=== PATIENT | female | born 1950 | race Caucasian/White ===

== ENCOUNTER 2020-03-10 14:59 | Emergency (ER) | payer MEDICARE, OTHER ==
[2020-03-10 15:15] VITALS: O2SAT 94
[2020-03-10] MEDS ORDERED: Sodium Chloride 0.9% 1000 ML 1,000 ML IV STA (15:28)
[2020-03-10] MEDS ORDERED: MORPHINE SULFATE 2 MG INJ IV ONE (15:28)
[2020-03-10] MEDS ORDERED: Zofran 4 MG/2 ML VIAL IV ONE (15:28)
[2020-03-10] MEDS ORDERED: Sodium Chloride 0.9% 1000 ML 1,000 ML ONE (15:47)
[2020-03-10] MEDS ORDERED: MORPHINE SULFATE 2 MG INJ ONE (15:47)
[2020-03-10 16:01] LABS: Absolute Neutrophil Ct (ANC) 5.33 (1.4-6.9); BASOPHIL % 0.2 % (0.0-0.4); Basophil (Absolute #) 0.02 (0-0.4); Eosinophil % 1.9 % (0.00-5.0); Eosinophil (Absolute #) 0.18 (0-0.5); Hematocrit 42.5 % (35-47); Hemoglobin 14.5 gm/dl (12.0-16.0); Lymphocyte (Absolute #) 3.08 (1.0-4.6); Lymphocytes % 33.2 % (24.0-44.0); Mean Cell Volume 87.1 fl (78-100); Mean Corpuscular Hemoglobin 29.7 pg (26-32); Mean Corpuscular Hgb Concent. 34.1 g/dl (32-36); Mean Platelet Volume 9.6 fl (7.5-11.0); Monocyte (Absolute #) 0.67 (0.0-1.3); Monocytes % 7.2 % (0.0-12.0); Neutrophil % 57.5 % (36.0-66.0); Platelet Count 257 K/mm3 (150-450); Red Blood Count 4.88 M/mm3 (4.1-5.4); Red Cell Distribution Width 14.2 % (11.5-14.0); White Blood Count 9.3 K/mm3 (4.0-10.5)
[2020-03-10 16:08] LABS: ALBUMIN 4.4 g/dL (3.5-5.0); ALKALINE PHOSPHATASE 99 U/L (38-126); ANION GAP 14.6 MEQ/L (5-15); BLOOD UREA NITROGEN 16 mg/dL (7-17); CHLORIDE 101 mmol/L (98-107); Calcium 9.5 mg/dL (8.4-10.2); Carbon Dioxide 24 mmol/L (22-30); EST GLOMERULAR FILTRATION RATE > 60.0 ML/MIN; Glucose 284 mg/dL (74-106); LIPASE 113 U/L (23-300); Potassium 3.6 mmol/L (3.5-5.1); SGOT/AST 75 U/L (14-36); SGPT/ALT 64 U/L (0-35); SODIUM 136 mmol/L (137-145); Total Protein 8.4 g/dL (6.3-8.2)
[2020-03-10] MEDS ORDERED: Adacel Vial IM ONE ×2 (16:45→17:39)
--- NOTE | 2020-03-10 16:47 | ERPHSYRPT ---
- History of Present Illness Time Seen by Provider: 03/10/20 15:02 Source: patient, EMS Exam Limitations: no limitations Patient Subjective Stated Complaint: fall Triage Nursing Assessment: pt to ED after fall at wedding today. reports she fell down 10-12 wooden steps and lost consiousness. denies blood thinners. pt reports 6/10 pain in lower back and in back of head. lac noted to back of head. A&Ox4 on arrival. C collar placed by EMS captain fishing vessel. denies neck pain Physician History: 69 years old female presented in the ER via EMS with chief complaint of fall with a laceration to back of her head and brief loss of consciousness for a few seconds prior to arrival. Patient reports she was at her daughter's home, opened the wrong door and accidentally stepped on the stairs and lost balance leading to fall all the way down. She is complaining of moderate intensity sharp headache especially in the back of her head and low back pain. Denies any numbness tingling or weakness of extremities. Denies any blurry vision, di zziness or lightheadedness before the fall. Does feel lightheaded whenever she sits up. Denies any chest pain or palpitations. No fever or chills reported. Denies any sick contact. Occurred: just prior to arrival Reason for Fall: tripped Injuries/Pain Location: head, lower Loss of Consciousness: brief (seconds) Quality: sharpness Severity of Pain-Max: moderate Severity of Pain-Current: moderate Modifying Factors: Improves With: nothing Associated Symptoms (Fall): headache, lightheadedness Hx Tetanus, Diphtheria Vaccination/Date Given: No Hx Influenza Vaccination/Date Given: No Hx Pneumococcal Vaccination/Date Given: No Immunizations Up to Date: No Travel Risk - International Travel Have you traveled outside of the country in past 3 weeks: No - Coronavirus Screening Are you exhibiting any of the following symptoms?: No Close contact with a COVID-19 positive Pt in past 14-21 Days: No - Review of Systems Constitutional: Fatigue Eyes: No Symptoms Ears, Nose, & Throat: No Symptoms Respiratory: No Symptoms Cardiac: No Symptoms Abdominal/Gastrointestinal: No Symptoms Genitourinary Symptoms: No Symptoms Musculoskeletal: Back Pain Skin: No Symptoms Neurological: Dizziness, Headache Psychological: No Symptoms Endocrine: No Symptoms Hematologic/Lymphatic: No Symptoms Immunological/Allergic: No Symptoms - Past Medical History Pertinent Past Medical History: Yes Cardiac History: Other Endocrine Medical History: Other Other Medical History: pre diabetic, clear heart cath years ago - Past Surgical History Past Surgical History: Yes Cardiac: Cardiac Catheterization - Social History Smoking Status: Never smoker Exposure to second hand smoke: No Drug Use: none Patient Lives Alone: No - Female History Hx Now: No - Nursing Vital Signs Nursing Vital Signs: Initial Vital Signs Temperature 97.6 F 03/10/20 15:03 Pulse Rate 97 H 03/10/20 15:03 Respiratory Rate 18 03/10/20 15:03 Blood Pressure 140/95 03/10/20 15:03 O2 Sat by Pulse Oximetry 94 L 03/10/20 15:03 Pain Scale Pain Intensity 3 - Brunilda Coma Score Best Eye Response (Brunilda): (4) open spontaneously Best Verbal Response (Pemberton): (5) oriented Best Motor Response (Pemberton): (6) obeys commands Pemberton Total: 15 - Physical Exam General Appearance: no apparent distress, alert Head Injury: lacerations (7 cm occipital area with no active spurting but has slow ooze.), tenderness (Occipital area), No Michaud's Sign Eye Exam: PERRL/EOMI, eyes nml inspection ENT Exam: airway nml, evidence of ENT injury Neck Exam: supple, trachea midline, full range of motion, normal alignment Respiratory/Chest Exam: normal breath sounds, No chest tenderness Cardiovascular Exam: normal heart sounds, regular rate/rhythm Gastrointestinal Exam: soft, normal bowel sounds, tenderness (Minimal tenderness in left lower quadrant) Back Exam: normal inspection, vertebral tenderness (Lower lumbar), decreased range of motion, muscle spasm Extremity Exam: normal inspection, normal range of motion, capillary refill <3 sec Neurologic Exam: alert, oriented x 3, cooperative, data warehousing engineer II-XII nml as tested, normal mood/affect, nml cerebellar function, sensation nml, No motor deficits Skin Exam: normal color SpO2 Interpretation: normal SpO2: 94 O2 Delivery: Room Air Procedures - Laceration/Wound Repair Head Wound Location: head Wound Length (cm): 7 Wound's Depth, Shape: superficial Anesthesia: 1% lidocaine w/ Epi Volume Anesthetic (ccs): 5 Wound Repaired With: [place] Number of Sutures: 10 Occipital Wound Location: head Wound Length (cm): 7 Wound's Depth, Shape: into muscle Wound Explored: clean Irrigated: Yes Hibiclens Prep: Yes Anesthesia: 1% lidocaine w/ Epi Volume Anesthetic (ccs): 5 Wound Repaired With: [place] Number of Sutures: 10 Layer Closure?: No Sterile Dressing Applied?: Yes - Course EKG Interpreted by Me: RATE (97), Sinus Rhythm, NORMAL AXIS, NORMAL INTERVALS, NORMAL QRS Ordered Tests: Medication Summary Discontinued Medications Generic Name Dose Route Start Last Admin Trade Name Freq PRN Reason Stop Dose Admin Diphtheria/Tetanus/Acell Pertussis 0.5 ml 03/10/20 16:45 03/10/20 17:40 Adacel Vial IM 03/10/20 16:46 0.5 ml .ONCE ONE Administration Diphtheria/Tetanus/Acell Pertussis Confirm 03/10/20 17:39 Adacel Vial Administered 03/10/20 17:40 Dose 0.5 ml IM .STK-MED ONE Sodium Chloride 1,000 mls @ 499 mls/hr 03/10/20 15:28 03/10/20 18:23 Sodium Chloride 0.9% 1000 Ml IV 03/10/20 17:28 Infused .Q2H1M STA Infusion Sodium Chloride Confirm 03/10/20 15:47 Sodium Chloride 0.9% 1000 Ml Administered 03/10/20 15:48 Dose 1,000 mls @ ud .ROUTE .STK-MED ONE Morphine Sulfate 2 mg 03/10/20 15:28 03/10/20 15:55 Morphine Sulfate 2 Mg Inj IV 03/10/20 15:29 2 mg STAT ONE Administration Morphine Sulfate Confirm 03/10/20 15:47 Morphine Sulfate 2 Mg Inj Administered 03/10/20 15:48 Dose 2 mg .ROUTE .STK-MED ONE Ondansetron HCl 4 mg 03/10/20 15:28 03/10/20 17:40 Zofran 4 Mg/2 Ml Vial IV 03/10/20 15:29 4 mg STAT ONE Administration Ondansetron HCl Confirm 03/10/20 17:39 Zofran 4 Mg/2 Ml Vial Administered 03/10/20 17:40 Dose 4 mg .ROUTE .STK-MED ONE Lab/Rad Data: Laboratory Result Diagrams 03/10/20 15:30 03/10/20 15:30 Laboratory Results 03/10/20 03/10/20 03/10/20 Range/Units 18:25 18:23 15:30 WBC (4.0-10.5) K/mm3 RBC (4.1-5.4) M/mm3 Hgb (12.0-16.0) gm/dl Hct (35-47) % MCV (78-100) fl MCH (26-32) pg MCHC (32-36) g/dl RDW (11.5-14.0) % Plt Count (150-450) K/mm3 MPV (7.5-11.0) fl Gran % (36.0-66.0) % Eos # (Auto) (0-0.5) Absolute Lymphs (auto) (1.0-4.6) Absolute Monos (auto) (0.0-1.3) Lymphocytes % (24.0-44.0) % Monocytes % (0.0-12.0) % Eosinophils % (0.00-5.0) % Basophils % (0.0-0.4) % Absolute Granulocytes (1.4-6.9) Basophils # (0-0.4) Sodium (137-145) mmol/L Potassium (3.5-5.1) mmol/L Chloride (98-107) mmol/L Carbon Dioxide (22-30) mmol/L Anion Gap (5-15) MEQ/L BUN (7-17) mg/dL Creatinine (0.52-1.04) mg/dL Estimated GFR ML/MIN Glucose (74-106) mg/dL Calcium (8.4-10.2) mg/dL Total Bilirubin (0.2-1.3) mg/dL AST (14-36) U/L ALT (0-35) U/L Alkaline Phosphatase (38-126) U/L Troponin I < 0.012 < 0.012 (0.000-0.034) ng/mL Serum Total Protein (6.3-8.2) g/dL Albumin (3.5-5.0) g/dL Lipase (23-300) U/L Urine Color YELLOW (YELLOW) Urine Appearance SLIGHTLY CLOUDY (CLEAR) Urine pH 5.0 (5-6) Ur Specific [place]ell 1.037 (1.005-1.025) Urine Protein NEGATIVE (Negative) Urine Ketones SMALL (NEGATIVE) Urine Blood SMALL (0-5) Marvel/ul Urine Nitrite NEGATIVE (NEGATIVE) Urine Bilirubin NEGATIVE (NEGATIVE) Urine Urobilinogen NEGATIVE (0-1) mg/dL Ur Leukocyte Esterase LARGE (NEGATIVE) Urine WBC (Auto) 26-50 (0-5) /HPF Urine RBC (Auto) 3-5 (0-2) /HPF U Epithel Cells (Auto) RARE (FEW) /HPF Urine Bacteria (Auto) RARE (NEGATIVE) /HPF Urine Mucus (Auto) SLIGHT (NEGATIVE) /HPF Urine Culture Reflexed YES (NO) Urine Glucose >=500 (NEGATIVE) mg/dL 03/10/20 03/10/20 Range/Units 15:30 15:30 WBC 9.3 (4.0-10.5) K/mm3 RBC 4.88 (4.1-5.4) M/mm3 Hgb 14.5 (12.0-16.0) gm/dl Hct 42.5 (35-47) % MCV 87.1 (78-100) fl MCH 29.7 (26-32) pg MCHC 34.1 (32-36) g/dl RDW 14.2 H (11.5-14.0) % Plt Count 257 (150-450) K/mm3 MPV 9.6 (7.5-11.0) fl Gran % 57.5 (36.0-66.0) % Eos # (Auto) 0.18 (0-0.5) Absolute Lymphs (auto) 3.08 (1.0-4.6) Absolute Monos (auto) 0.67 (0.0-1.3) Lymphocytes % 33.2 (24.0-44.0) % Monocytes % 7.2 (0.0-12.0) % Eosinophils % 1.9 (0.00-5.0) % Basophils % 0.2 (0.0-0.4) % Absolute Granulocytes 5.33 (1.4-6.9) Basophils # 0.02 (0-0.4) Sodium 136 L (137-145) mmol/L Potassium 3.6 (3.5-5.1) mmol/L Chloride 101 (98-107) mmol/L Carbon Dioxide 24 (22-30) mmol/L Anion Gap 14.6 (5-15) MEQ/L BUN 16 (7-17) mg/dL Creatinine 0.50 L (0.52-1.04) mg/dL Estimated GFR > 60.0 ML/MIN Glucose 284 H (74-106) mg/dL Calcium 9.5 (8.4-10.2) mg/dL Total Bilirubin 0.70 (0.2-1.3) mg/dL AST 75 H (14-36) U/L ALT 64 H (0-35) U/L Alkaline Phosphatase 99 (38-126) U/L Troponin I (0.000-0.034) ng/mL Serum Total Protein 8.4 H (6.3-8.2) g/dL Albumin 4.4 (3.5-5.0) g/dL Lipase 113 (23-300) U/L Urine Color (YELLOW) Urine Appearance (CLEAR) Urine pH (5-6) Ur Specific [place] (1.005-1.025) Urine Protein (Negative) Urine Ketones (NEGATIVE) Urine Blood (0-5) Marvel/ul Urine Nitrite (NEGATIVE) Urine Bilirubin (NEGATIVE) Urine Urobilinogen (0-1) mg/dL Ur Leukocyte Esterase (NEGATIVE) Urine WBC (Auto) (0-5) /HPF Urine RBC (Auto) (0-2) /HPF U Epithel Cells (Auto) (FEW) /HPF Urine Bacteria (Auto) (NEGATIVE) /HPF Urine Mucus (Auto) (NEGATIVE) /HPF Urine Culture Reflexed (NO) Urine Glucose (NEGATIVE) mg/dL - Progress Progress: improved, re-examined Progress Note: 69 years old is evaluated for fall with a laceration in the occipital area with positive loss of consciousness. I have obtained trauma scans with no acute fin dings in the head cervical/thoracic spine. Has some spinal stenosis and lumbar spine which according to patient she has chronic low back pain and some stenosis but no acute fracture or subluxation. Laceration is repaired. She is given symptomatic treatment in the ER, on reevaluation feeling better. Tetanus is updated. Patient lives with her and has good support system. She is being discharged with frequent neuro checks and outpatient follow-up. Discussed signs symptoms of worsening/head injury instructions needing return to ER which she seems understanding. Stable for discharge. Counseled pt/family regarding: lab results, diagnosis, need for follow-up, rad results - Departure Departure Disposition: Home Clinical Impression: Concussion Qualifiers: Encounter type: initial encounter Loss of consciousness presence/duration: with LOC of 30 min or less Qualified Code(s): S06.0X1A - Concussion with loss of cons ciousness of 30 minutes or less, initial encounter Scalp laceration Qualifiers: Encounter type: initial encounter Qualified Code(s): S01.01XA - Laceration without foreign body of scalp, initial encounter Low back strain Qualifiers: Encounter type: initial encounter Qualified Code(s): S39.012A - Strain of muscle, fascia and tendon of lower back, initial encounter Condition: Stable Critical Care Time: No Referrals: MANA MEANS MD [Primary Care Provider] - Follow Up with PCP/3 days Instructions: Concussion, Adult (DC), Low Back Pain (DC) Additional Instructions: Take pain medications as needed. Frequent neuro checks for next 48 hours, stay with a responsible person. Staple removal and 7 to 10 days. Return to ER for worsening.
[2020-03-10] MEDS ORDERED: Zofran 4 MG/2 ML VIAL ONE (17:39)
[2020-03-10 18:31] LABS: Appearance SLIGHTLY CLOUDY (CLEAR); Bacteria RARE /HPF (NEGATIVE); Bilirubin NEGATIVE (NEGATIVE); Blood SMALL Ery/ul (0-5); Epithelial Cells RARE /HPF (FEW); Glucose >=500 mg/dL (NEGATIVE); Ketones SMALL (NEGATIVE); Leukocyte Esterase LARGE (NEGATIVE); Mucus SLIGHT /HPF (NEGATIVE); Nitrite NEGATIVE (NEGATIVE); Protein,Urine Dip NEGATIVE (Negative); Specific Gravity 1.037 (1.005-1.025); Urobilinogen NEGATIVE mg/dL (0-1); WBC 26-50 /HPF (0-5)
[2020-03-10 19:14] VITALS: BP 147/77; PULSE 67
--- NOTE | 2020-03-10 20:40 | XRAY ---
Indication: Head injury following fall down stairs. Multiple contiguous axial images obtained through the head without contrast. Comparison: None No acute intracranial hemorrhage, abnormal extra-axial fluid collection, or mass effect. Fourth ventricle is midline without hydrocephalus. Storey-white matter differentiation preserved. Small posterior scalp hematoma. Bony calvarium intact with mild hyperostosis frontalis interna. Paranasal sinuses and mastoid air cells are clear. Impression: Small posterior scalp hematoma. No underlying fracture or acute intracranial abnormalities. Comment: Preliminary interpretation was made by [facility]. No critical discrepancy.
--- NOTE | 2020-03-10 20:42 | XRAY ---
Indication: Pain following fall down stairs. Multiple contiguous axial images obtained through the cervical spine. Sagittal and coronal reformatted images obtained. Comparison: None Age-related osteopenia. Axial images negative for acute fracture, suspicious bony lesions, or spinal canal stenosis. Minimal/mild multilevel endplate spurring. Sagittal and coronal reformatted images images normal alignment with minimal C5-C6 disc space narrowing. No acute compression fracture, dislocation, or jumped facet. Normal appearing craniocervical junction. Visualized noncontrasted soft tissues are unremarkable. CT head and CT chest reported separately. Impression: 1. Osteopenia and multilevel degenerative changes. 2. Remaining CT cervical spine is negative. Comment: Preliminary interpretation was made by [facility]. No critical discrepancy.
--- NOTE | 2020-03-10 20:48 | XRAY ---
Indication: Pain following fall down stairs. Multiple contiguous axial images obtained through the chest using 80 cc Isovue 370 contrast. Comparison: None Respiration artifact throughout the exam limits exam. Moderate bilateral dependent atelectasis and mild scattered fibrosis/scarring. No suspicious pulmonary mass, infiltrate, consolidation, effusion, or pneumothorax. Heart is not enlarged. Aorta is normal in course and caliber. No pathologic retroperitoneal lymphadenopathy. Bony thorax demonstrates nondisplaced left 7/8 anterolateral rib fractures of uncertain chronicity. Elsewhere mild osteopenia, mild degenerative changes throughout the spine, and T4/T8 vertebral hemangiomas. CT abdomen/pelvis reported separately. Impression: 1. Respiration artifact. 2. Left 7/8 rib fractures of uncertain chronicity. 3. Scattered atelectasis and fibrosis/scarring. 4. Osteopenia, multilevel degenerative spondylosis, and T4/T8 vertebral hemangiomas. Comment: Preliminary interpretation was made by [facility]. No critical discrepancy.
--- NOTE | 2020-03-10 20:50 | XRAY ---
Indication: Pain following fall down stairs. Multiple contiguous axial images obtained through the thoracic spine. Sagittal and coronal reformatted images obtained. Comparison: None Osseous structures demineralized consistent with patient's age. Mild degenerative changes throughout the spine, and T4/T8 vertebral hemangiomas. No acute fracture, suspicious bony lesions, or spinal canal stenosis. Sagittal and coronal reformatted images demonstrate normal thoracic alignment/kyphosis. Vertebral body heights/disc spaces maintained. CT chest and abdomen/pelvis reported separately. Impression: Osteopenia, multilevel degenerative spondylosis, and T4/T8 vertebral hemangiomas. Comment: Preliminary interpretation was made by [facility]. No critical discrepancy.
--- NOTE | 2020-03-10 20:52 | XRAY ---
Indication: Pain following fall down stairs. Multiple contiguous axial images obtained through the abdomen and pelvis using 80 cc Isovue 370 contrast. Comparison: None CT chest reported separately. Noncontrasted stomach and bowel loops appear nonobstructed. No free fluid/air. Mild fatty hepatomegaly measuring 21.4 cm and 1 cm left mid renal cyst. Remaining liver, gallbladder, pancreas, spleen, adrenal glands, kidneys, ureters, bladder, and uterus appear unremarkable. Mild scattered aortoiliac calcifications. No AAA or pathological retroperitoneal lymphadenopathy. Osseous structures demonstrate L3 anterior wedging deformity with less than 25% height loss of uncertain chronicity. Elsewhere osteopenia, mild degenerative spondylosis throughout the thoracolumbar spine, and 4 mm L4 spondylolisthesis Impression: 1. Minimal L3 anterior wedging deformity of uncertain chronicity. MRI may yield further information if clinically warranted. 2. Fatty hepatomegaly, left renal cyst, and chronic bony findings. 3. Remaining CT abdomen/pelvis with contrast exam is negative. Comment: Preliminary interpretation was made by [facility] who does not report L3 deformity.
--- NOTE | 2020-03-10 21:00 | XRAY ---
Indication: Pain following fall. Multiple contiguous axial images obtained through the lumbar spine. Sagittal and coronal reformatted images obtained. Comparison: None Age-related osteopenia. L3 vertebral body demonstrates anterior wedging deformity with less than 25% height loss of uncertain chronicity. Elsewhere mild degenerative spondylosis throughout the thoracolumbar spine with multilevel broad-based disc bulge greatest at L4-L5, L3-S1 degenerative vacuum disc phenomena, and [address] abdomen/pelvis reported separately. Impression: 1. Minimal L3 anterior wedging deformity of uncertain chronicity. MRI may yield further information if clinically warranted. 2. Osteopenia, multilevel degenerative spondylosis, and grade 1 L4 spondylolisthesis. Comment: Preliminary interpretation was made by [facility] who does not report L3 deformity.
== END 2020-03-10 19:00 | disposition home or self-care (01) ==
LOC: ED 14:59
DX: S06.0X1A Concussion with loss of consciousness of 30 minutes or less, initial encounter (principal); S01.01XA Laceration without foreign body of scalp, initial encounter; W10.9XXA Fall (on) (from) unspecified stairs and steps, initial encounter; Y93.9 Activity, unspecified; R51 Headache; R42 Dizziness and giddiness; R53.83 Other fatigue
CPT/HCPCS: 12004; 36000; 36415; 70450; 71260; 72125; 72128; 72131; 74177; 80053; 81001; 83690; 84484; 85025; 87077; 87086; 87186; 90471; 90715; 93005; 96360; 96361; 96374; 96375; 99285; J2270; J2405

== ENCOUNTER 2021-12-26 07:26 | Day surgery (SDC) | payer MEDICARE, OTHER ==
--- NOTE | 2021-12-19 08:38 | HP ---
DATE OF SURGERY: 12/26/2021 HISTORY OF PRESENT ILLNESS: The patient is a 71-year-old female patient with complaints of right upper quadrant pain for one year. Apparently she has been told she has a fatty liver. Denies nausea and vomiting. She has a little diarrhea. She had ultrasound with some small gallstones and sludge. PAST MEDICAL HISTORY: Hypertension, hyperlipidemia, diabetes, reflux. PAST SURGICAL HISTORY: Foot surgery. Rotator cuff. Left toe surgery. ALLERGIES: NKDA. MEDICATIONS: Metformin, glyburide, omeprazole, statin, insulin. FAMILY HISTORY: Heart disease. SOCIAL HISTORY: None. REVIEW OF SYSTEMS: CONSTITUTIONAL: Denies fever or chills. CHEST: Denies shortness of breath. CVS: Denies chest pain. ABDOMEN: Reports right upper quadrant, nausea, vomiting and diarrhea. Denies constipation or rectal bleeding. PHYSICAL EXAMINATION: GENERAL: No acute distress. CHEST: Nonlabored. No shortness of breath. CVS: Regular rate and rhythm. ABDOMEN: Soft, nontender. IMPRESSION: Symptomatic cholelithiasis and sludge. PLAN: Laparoscopic cholecystectomy with Dr. Darryl Adams. As dictated by Martina De La Vega NP.
[2021-12-26] MEDS ORDERED: MEFOXIN 2 GM PREMIX** 2 GM/50 ML ML IV ONE (08:14)
[2021-12-26] MEDS ORDERED: Lactated Ringers 1,000 ML IV ONE (08:19)
[2021-12-26] MEDS ORDERED: Sensorcaine 0.25% 10 ML ONE (08:19)
[2021-12-26] MEDS ORDERED: Lactated Ringers 1,000 ML IV SCH (08:30)
[2021-12-26] MEDS ORDERED: MEFOXIN 2 GM PREMIX** 2 GM/50 ML ML IV SCH (09:00)
[2021-12-26] MEDS ORDERED: BRIDION 200MG/2ML IV ONE (09:59)
[2021-12-26] MEDS ORDERED: Zofran 4 MG/2 ML VIAL ONE (09:59)
[2021-12-26] MEDS ORDERED: SUBLIMAZE 100 MCG/2 ML ONE ×2 (09:59→11:22)
[2021-12-26] MEDS ORDERED: Zemuron 100 MG/10 ML ONE (09:59)
[2021-12-26] MEDS ORDERED: Xylocaine-Mpf 2% 5 Ml Vial ONE (09:59)
[2021-12-26] MEDS ORDERED: TORAdol 30 mg Injection ONE (09:59)
[2021-12-26] MEDS ORDERED: DEXMEDETOMIDINE 80 MCG/20ML-NS IV ONE (09:59)
[2021-12-26] MEDS ORDERED: Decadron 4 MG INJ ONE (09:59)
[2021-12-26] MEDS ORDERED: DIPRIVAN 200 MG/20 ML IV ONE (09:59)
[2021-12-26] MEDS ORDERED: PHENYLEPHRINE HCL ONE (10:16)
[2021-12-26] MEDS ORDERED: ROBINUL ONE (10:26)
[2021-12-26] MEDS ORDERED: Hydromorphone 1 mg/ml Injection ONE (11:22)
[2021-12-26] MEDS ORDERED: Compazine 10 MG/2 ML ONE (11:36)
--- NOTE | 2021-12-26 13:43 | OP ---
SURGERY DATE: 12/26/2021 SURGERY TIME: 1001 PREOPERATIVE DIAGNOSIS: 1. SYMPTOMATIC CHOLELITHIASIS. POSTOPERATIVE DIAGNOSIS: 1. SYMPTOMATIC CHOLELITHIASIS. PROCEDURE: 1. Laparoscopic cholecystectomy. SURGEON: Darryl Adams M.D. ANESTHESIA: General endotracheal tube by Dejan Hall CRNA. COMPLICATIONS: None. CONDITION: Stable. INDICATION: Patient with an upper abdominal discomfort. She has a robust build. OPERATIVE PROCEDURE: She was taken to surgery. General anesthetic. Holes were specifically marked with relationship to her costal margin and her build. Veress needle right upper quadrant. Insufflated to about 11. The camera was brought up away from the umbilicus as this would be necessary. A 5 port was placed here. The 5 port was under the mesentery just a little bit. On inspection, there was no bleeding and there was no suggestion of any issue. This was looked at then and was also looked at twice during the case. The gallbladder was thin-walled and it did donald fairly posteriorly. With care and patience, it was loose enough that this posterior area could be pulled up some. There was a pinhole, anterior hole, right between the gallbladder and the infundibulum duct. Some black stones were leaking out of this. The infundibulum was grasped. It was a right ankle clamp. The cystic duct was milked and there was nothing else coming out. At this time, it was taken with a 2.0 supravascular cartridge. It sealed off nicely. Gallbladder continued to be rolled out of the gallbladder fossa. Gallbladder delivered through the 12 port for the stapler. The 12 port stapler was closed with 0 Vicryl. The field was inspected. It was totally dry. Looking back down at where the entry 5 port was, was totally satisfactory. The mesentery was totally satisfactory. The small bowel was satisfactory. CO2 was exsufflated. Skin closed with 4-0 Vicryl and Steri-strips. Patient tolerated the procedure satisfactory.
[2021-12-26 14:11] VITALS: BP 136/93; PULSE 87; O2SAT 94
== END 2021-12-26 13:55 | disposition home or self-care (01) ==
LOC: SDC 07:26
PROVIDERS: ATTEND Surgery
DX: K80.20 Calculus of gallbladder without cholecystitis without obstruction (principal); E11.9 Type 2 diabetes mellitus without complications
CPT/HCPCS: 82947; 99100; J0694; J1100; J1170; J1885; J2370; J2405; J2704; J3010

== ENCOUNTER 2023-06-25 08:25 | Day surgery (SDC) | payer MEDICARE, OTHER ==
--- NOTE | 2023-06-24 08:38 | HP ---
DATE OF SURGERY: 06/25/2023 HISTORY OF PRESENT ILLNESS: The patient is a 72-year-old female who presented with history of colon polyps. Last colonoscopy was five years ago. She has softer stools but trouble getting them out. She is not taking anything. No rectal bleeding or abdominal pain. She has had digital rectal disimpaction before. She does have some epigastric pain and offered EGD at this time and she has declined that. PAST MEDICAL HISTORY: Diabetes, hypertension, thyroid. PAST SURGICAL HISTORY: Cholecystectomy. ALLERGIES: NKDA. MEDICATIONS: Vitamin D, colchicine, metoprolol, Thyroid, Nitro, progesterone, CoQ-10m, selenium. FAMILY HISTORY: None reported. SOCIAL HISTORY: Negative. REVIEW OF SYSTEMS: CONSTITUTIONAL: Denies fever or chills. CHEST: Denies shortness of breath. CVS: Denies chest pain. ABDOMEN: Denies abdominal pain. PHYSICAL EXAMINATION: GENERAL: No acute distress. CHEST: Nonlabored. No shortness of breath. CVS: Regular rate and rhythm. ABDOMEN: Soft. IMPRESSION: History of polyps. PLAN: Colonoscopy with Dr. Darryl Adams. As dictated by Martina De La Vega NP.
[2023-06-25] MEDS ORDERED: Lactated Ringers 1,000 ML IV SCH (09:30)
[2023-06-25] MEDS ORDERED: DIPRIVAN 200 MG/20 ML IV ONE (10:29)
[2023-06-25] MEDS ORDERED: Xylocaine-Mpf 2% 5 Ml Vial ONE (10:29)
[2023-06-25 10:57] VITALS: RESP 16; TEMP 96.7
[2023-06-25 11:06] VITALS: O2SAT 95
[2023-06-25 11:11] VITALS: BP 125/65; PULSE 88
--- NOTE | 2023-06-25 11:20 | OP ---
SURGERY DATE/TIME: 06/25/2023 1031 PREOPERATIVE DIAGNOSIS: Screening. POSTOPERATIVE DIAGNOSES: 1) One polyp. 2) Moderate sigmoid diverticulosis. 3) Prep score excellent. 4) Withdrawal time five minutes. 5) Two previous polyp sites are visible and were gone, one had methylene blue and one did not. PROCEDURE: Colonoscopic examination complete to cecum with hot polypectomy mid ascending colon 6 mm polyp. SURGEON: Darryl Adams M.D. ANESTHESIA: MAC. COMPLICATIONS: None. CONDITION: Stable. INDICATION: The patient presents for follow up of polyps. DESCRIPTION OF PROCEDURE: Taken to endoscopy. Anal digital examination satisfactory. Scope introduced. The scope advanced to the cecum. Base of the cecum, ileocecal valve, appendiceal orifice normal. Coming back up about 2 inches, a 6 mm polyp was present and taken with hot biopsy forceps to extinction. On circumferential withdrawal, there is moderate sigmoid diverticulosis otherwise satisfactory. Two old sites were noted, one with methylene blue and one without. The patient tolerated the procedure well. Follow up in five years.
== END 2023-06-25 11:15 | disposition home or self-care (01) ==
LOC: SDC 08:25
PROVIDERS: ATTEND Surgery
DX: Z12.11 Encounter for screening for malignant neoplasm of colon (principal); K57.30 Diverticulosis of large intestine without perforation or abscess without bleeding; E11.9 Type 2 diabetes mellitus without complications; D12.0 Benign neoplasm of cecum
CPT/HCPCS: 82947; 99100; J2704

== ENCOUNTER 2023-10-23 19:06 | Emergency (ER) | payer MEDICARE, OTHER ==
--- NOTE | 2023-10-23 19:22 | ERPHSYRPT ---
- History of Present Illness Time Seen by Provider: 10/23/23 19:22 Source: patient Exam Limitations: no limitations Physician History: This is a 73-year-old white female patient who has had intermittent episodes of feeling flushed and a little lightheaded for over a year. Today, she had more than 9 episodes of this occurring and became concerned when she took her blood pressure at home and the systolic blood pressure reading was in the 80s. Patient drove herself into the hospital. Her first systolic blood pressure was approximately 160 mmHg. Approximately 15 minutes later repeat systolic blood pressure was 103. Her heart rate has been in the 70s and 80s and a normal sinus rhythm pattern. Patient denies shortness of breath. Patient denies chest pain. She has had no visual changes. She states that she has not hit her head recently. She also states that there is been no change in her medications. Patient has a history of hypertension on metoprolol as well as diabetes. She had a clear cardiac catheterization in the year 2011. Her video game programmer is Dr. Clark Timing/Duration: today, worse, other (Intermittently present for over a year) Severity: mild Associated Symptoms: nausea, No shortness of breath, No chest pain, No weakness Allergies/Adverse Reactions: No Known Drug Allergies Allergy (Verified 10/23/23 19:15) Home Medications: Metoprolol Succinate 50 mg [Toprol Xl 50 MG] 25 mg PO DAILY 12/20/21 [Hi story] Colchicine 0.6 mg PO DAILY 05/14/23 [History] Empagliflozin [Jardiance] 25 mg PO DAILY 05/14/23 [History] Selenium 200 mcg PO DAILY 05/14/23 [History] Thyroid,Pork [Thyroid] 60 mg PO DAILY 05/14/23 [History] Ubidecarenone [Co Q-10] 100 mg PO DAILY 05/14/23 [History] Hx Tetanus, Diphtheria Vaccination/Date Given: No Hx Influenza Vaccination/Date Given: No Hx Pneumococcal Vaccination/Date Given: No Travel Risk - International Travel Have you traveled outside of the country in past 3 weeks: No - Emerging Infectious Disease Are you exhibiting symptoms associated with any current EIDs: No - Review of Systems Constitutional: No Symptoms Eyes: No Symptoms Ears, Nose, & Throat: No Symptoms Respiratory: No Symptoms Cardiac: No Symptoms Abdominal/Gastrointestinal: No Symptoms Genitourinary Symptoms: No Symptoms Musculoskeletal: No Symptoms Skin: Other (Facial flush) Neurological: Other (Lightheaded) Psychological: No Symptoms Endocrine: No Symptoms Hematologic/Lymphatic: No Symptoms Immunological/Allergic: No Symptoms All Other Systems: Reviewed and Negative - Past Medical History Pertinent Past Medical History: Yes Neurological History: No Pertinent History ENT History: No Pertinent History Cardiac History: Hypertension Respiratory History: No Pertinent History Endocrine Medical History: Diabetes Type II Musculoskeletal History: No Pertinent History GI Medical History: No Pertinent History History: No Pertinent History Psycho-Social History: No Pertinent History Female Reproductive Disorders: No Pertinent History Other Medical History: clear heart cath in 2012 - Past Surgical History Past Surgical History: Yes Neuro Surgical History: No Pertinent History Cardiac: Cardiac Catheterization Respiratory: No Pertinent History Gastrointestinal: Cholecystectomy Genitourinary: No Pertinent History Musculoskeletal: Other Female Surgical History: No Pertinent History Other Surgical History: left foot surgery. left rotator cuff repair. colonoscopy - Social History Smoking Status: Never smoker Exposure to second hand smoke: No Drug Use: none Patient Lives Alone: No - Nursing Vital Signs Nursing Vital Signs: Initial Vital Signs Pulse Rate 84 10/23/23 19:13 Respiratory Rate 17 10/23/23 19:13 Blood Pressure 165/95 10/23/23 19:13 O2 Sat by Pulse Oximetry 98 10/23/23 19:13 Pain Scale Pain Intensity 4 - Physical Exam General Appearance: no apparent distress, alert, anxiety Eye Exam: PERRL/EOMI, eyes nml inspection Ears, Nose, Throat Exam: normal ENT inspection, moist mucous membranes Neck Exam: normal inspection, non-tender, supple, full range of motion Respiratory Exam: normal breath sounds, lungs clear, airway intact, No chest tenderness, No respiratory distress Cardiovascular Exam: regular rate/rhythm, normal heart sounds, normal peripheral pulses Gastrointestinal/Abdomen Exam: soft, normal bowel sounds, No tenderness Pelvic Exam: not done Rectal Exam: not done Back Exam: normal inspection, normal range of motion, No CVA tenderness Extremity Exam: normal inspection, normal range of motion, pelvis stable Neurologic Exam: alert, oriented x 3, cooperative, cardiovascular rn II-XII nml as tested, normal mood/affect, nml cerebellar function, nml station & gait, sensation nml Skin Exam: normal color, warm, dry Lymphatic Exam: No adenopathy SpO2 Interpretation: normal O2 Delivery: Room Air - Course Nursing assessment & vital signs reviewed: Yes EKG Interpreted by Me: RATE (78), Sinus Rhythm, NORMAL AXIS, NORMAL INTERVALS, NORMAL QRS, NORMAL ST-T, Other (No acute ischemic changes on today's twelve-lead EKG.) Ordered Tests: Active Orders 24 hr Category Date Time Status Mold Stripper STAT Care 10/23/23 19:49 Active EKG-ER Only STAT Care 10/23/23 19:49 Active IV Insertion STAT Care 10/23/23 19:49 Active HEAD WITHOUT CONTRAST [CT] Stat Exams 10/23/23 19:49 Taken CBC W DIFF Stat Lab 10/23/23 19:50 Completed CMP Stat Lab 10/23/23 19:50 Completed CULTURE,URINE Stat Lab 10/23/23 21:36 Received MAGNESIUM Stat Lab 10/23/23 19:50 Completed NT PRO BNPII Stat Lab 10/23/23 19:50 Completed TROPONIN Q4H Lab 10/23/23 19:50 Completed TROPONIN Q4H Lab 10/24/23 00:00 Ordered TROPONIN Q4H Lab 10/24/23 04:00 Ordered UA W/RFX UR CULTURE Stat Lab 10/23/23 21:36 Completed Holter Monitor ONCE RT 10/23/23 21:28 Active Medication Summary Generic Name Dose Route Start Last Admin Trade Name Freq PRN Reason Stop Dose Admin Cephalexin HCl 500 mg 10/23/23 21:50 Cephalexin Mh500 Mg Capsule PO 10/23/23 21:51 STAT ONE Discontinued Medications Generic Name Dose Route Start Last Admin Trade Name Freq PRN Reason Stop Dose Admin Sodium Chloride 500 mls @ 500 mls/hr 10/23/23 19:50 10/23/23 21:00 Sodium Chloride 0.9% 500 Ml IV 10/23/23 20:49 Infused .Q1H ONE Infusion Sodium Chloride Confirm 10/23/23 19:57 Sodium Chloride 0.9% 500 Ml Administered 10/23/23 19:58 Dose 500 mls @ ud IV .STK-MED ONE Ondansetron HCl 4 mg 10/23/23 19:51 10/23/23 19:58 Ondansetron Hcl 4 Mg/2 Ml Vial IV 10/23/23 19:52 4 mg STAT ONE Administration Ondansetron HCl Confirm 10/23/23 19:57 Ondansetron Hcl 4 Mg/2 Ml Vial Administered 10/23/23 19:58 Dose 4 mg .ROUTE .STK-MED ONE Lab/Rad Data: Laboratory Result Diagrams 10/23/23 19:50 10/23/23 19:50 Laboratory Results 10/23/23 10/23/23 10/23/23 Range/Units 21:36 19:50 19:50 WBC (4.0-10.5) x10^3/uL RBC (4.1-5.4) x10^6/uL Hgb (12.0-16.0) g/dL Hct (35-47) % MCV (78-100) fL MCH (26-32) pg MCHC (32-36) g/dL RDW (11.5-14.0) % Plt Count (150-450) x10^3/uL MPV (7.5-11.0) fL Gran % (36.0-66.0) % Immature Gran % (Auto) (0.00-0.4) % Nucleat RBC Rel Count (0.00-0.1) % Eos # (Auto) (0-0.5) x10^3/uL Immature Gran # (Auto) (0.00-0.03) x10^3u/L Absolute Lymphs (auto) (1.0-4.6) x10^3/uL Absolute Monos (auto) (0.0-1.3) x10^3/uL Absolute Nucleated RBC (0.00-0.01) x10^3u/L Lymphocytes % (24.0-44.0) % Monocytes % (0.0-12.0) % Eosinophils % (0.00-5.0) % Basophils % (0.0-0.4) % Absolute Granulocytes (1.4-6.9) x10^3/uL Basophils # (0-0.4) x10^3/uL Sodium 137 (135-145) mmol/L Potassium 3.8 (3.5-5.1) mmol/L Chloride 102 (98-107) mmol/L Carbon Dioxide 24 (22-30) mmol/L Anion Gap 14.1 (5-15) MEQ/L BUN 23 H (7-17) mg/dL Creatinine 0.59 (0.52-1.04) mg/dL Estimated GFR 95.7 ML/MIN Glucose 218 H (74-106) mg/dL Calcium 10.4 H (8.4-10.2) mg/dL Magnesium 1.9 (1.6-2.3) mg/dL Total Bilirubin 0.80 (0.2-1.3) mg/dL AST 32 (14-36) U/L ALT 27 (0-35) U/L Alkaline Phosphatase 71 (38-126) U/L Troponin I < 0.012 (0.000-0.033) ng/mL NT-Pro-B Natriuret Pep 90.2 (<300) pg/mL Serum Total Protein 7.9 (6.3-8.2) g/dL Albumin 4.1 (3.5-5.0) g/dL Urine Color Yellow (Yellow) Urine Appearance Clear (Clear) Urine pH 5.5 (4.6-8.0) Ur Specific [place] 1.025 (1.005-1.030) Urine Protein Negative (Negative) Urine Glucose (UA) >=1000 A (Negative) mg/dL Urine Ketones 15 A (Negative) Urine Blood Negative (Negative) Urine Nitrite Negative (Negative) Urine Bilirubin Negative (Negative) Urine Urobilinogen 0.2 (0.2) mg/dL Ur Leukocyte Esterase Small A (Negative) U Hyaline Cast (Auto) NONE SEEN (0-2) /LPF Urine Microscopic RBC 0-2 (0-5) /HPF Urine Microscopic WBC 11-20 A (0-5) /HPF Ur Epithelial Cells None Seen (None Seen) /HPF Urine Bacteria None Seen (None Seen) /HPF Urine Culture Reflexed YES (NO) 10/23/23 Range/Units 19:50 WBC 7.1 (4.0-10.5) x10^3/uL RBC 5.14 (4.1-5.4) x10^6/uL Hgb 15.1 (12.0-16.0) g/dL Hct 44.8 (35-47) % MCV 87.2 (78-100) fL MCH 29.4 (26-32) pg MCHC 33.7 (32-36) g/dL RDW 12.6 (11.5-14.0) % Plt Count 181 (150-450) x10^3/uL MPV 9.5 (7.5-11.0) fL Gran % 55.2 (36.0-66.0) % Immature Gran % (Auto) 0.3 (0.00-0.4) % Nucleat RBC Rel Count 0.0 (0.00-0.1) % Eos # (Auto) 0.16 (0-0.5) x10^3/uL Immature Gran # (Auto) 0.02 (0.00-0.03) x10^3u/L Absolute Lymphs (auto) 2.46 (1.0-4.6) x10^3/uL Absolute Monos (auto) 0.51 (0.0-1.3) x10^3/uL Absolute Nucleated RBC 0.00 (0.00-0.01) x10^3u/L Lymphocytes % 34.6 (24.0-44.0) % Monocytes % 7.2 (0.0-12.0) % Eosinophils % 2.3 (0.00-5.0) % Basophils % 0.4 (0.0-0.4) % Absolute Granulocytes 3.93 (1.4-6.9) x10^3/uL Basophils # 0.03 (0-0.4) x10^3/uL Sodium (135-145) mmol/L Potassium (3.5-5.1) mmol/L Chloride (98-107) mmol/L Carbon Dioxide (22-30) mmol/L Anion Gap (5-15) MEQ/L BUN (7-17) mg/dL Creatinine (0.52-1.04) mg/dL Estimated GFR ML/MIN Glucose (74-106) mg/dL Calcium (8.4-10.2) mg/dL Magnesium (1.6-2.3) mg/dL Total Bilirubin (0.2-1.3) mg/dL AST (14-36) U/L ALT (0-35) U/L Alkaline Phosphatase (38-126) U/L Troponin I (0.000-0.033) ng/mL NT-Pro-B Natriuret Pep (<300) pg/mL Serum Total Protein (6.3-8.2) g/dL Albumin (3.5-5.0) g/dL Urine Color (Yellow) Urine Appearance (Clear) Urine pH (4.6-8.0) Ur Specific [place] (1.005-1.030) Urine Protein (Negative) Urine Glucose (UA) (Negative) mg/dL Urine Ketones (Negative) Urine Blood (Negative) Urine Nitrite (Negative) Urine Bilirubin (Negative) Urine Urobilinogen (0.2) mg/dL Ur Leukocyte Esterase (Negative) U Hyaline Cast (Auto) (0-2) /LPF Urine Microscopic RBC (0-5) /HPF Urine Microscopic WBC (0-5) /HPF Ur Epithelial Cells (None Seen) /HPF Urine Bacteria (None Seen) /HPF Urine Culture Reflexed (NO) - Progress Progress: improved, re-examined Progress Note: 10/23/23 19:45 My medical decision making and the assignment of moderate complexity to this patient's medical issue is based on review of the patient's past medical history, review the patient's medication list, review the patient drug allergy list, history present illness and physical findings on examination. The workup in this patient includes placement of an intravenous line, twelve-lead EKG, t roponin level, magnesium level, CBC, CMP, urinalysis, CT scan of the head without contrast, and infusion of low rate normal saline solution. 10/23/23 19:46 Differential diagnosis includes medication side effect, electrolyte abnormalities, dehydration, urinary tract infection, dehydration, intracranial abnormality 10/23/23 21:51 I interpreted the patient's laboratory data results. The patient does have a mild urinary tract infection. Remainder of her laboratory data results do not show an acute, emergent medical issue. The CT scan of the head without contrast was interpreted by the radiologist and I reviewed the impression. The impression is no acute intracranial abnormality present. Counseled pt/family regarding: lab results, diagnosis, need for follow-up, rad results Medical Desision Making - Diagnostic Testing Diagnostic test were ordered, analyzed, and reviewed by me: Yes Radiological Interpretation: Reviewed by me, Teleradiologist Report - Risk of complications The pt has a mod risk of morbidity or mortality based on: Need for prescription drug management - Departure Departure Disposition: Home Clinical Impression: UTI (urinary tract infection), Mild dehydration Condition: Stable Critical Care Time: No Referrals: LORI MENDOZA DO [Primary Care Provider] - Follow up/PCP as directed Additional Instructions: Take your medications as prescribed. Keep a daily log of morning noon and night blood pressure and heart rate readings. Call your primary care provider and video game programmer on 10/26/2023, to make a follow-up appointment in the next 3 to 5 days. Return the Holter monitor as instructed. Prescriptions: Cephalexin Mh 500 mg [Keflex 500 mg] 500 mg PO TID #21 cap
[2023-10-23 19:30] VITALS: TEMP 97; O2SAT 97
[2023-10-23] MEDS ORDERED: Zofran 4 MG/2 ML VIAL ONE (19:57)
[2023-10-23] MEDS ORDERED: Sodium Chloride 0.9% 500 ML 500 ML IV ONE (19:57)
[2023-10-23] MEDS: Zofran 4 MG/2 ML VIAL IV ONE (19:58)
[2023-10-23] MEDS: Sodium Chloride 0.9% 500 ML 500 ML IV ONE (19:58)
[2023-10-23 20:09] LABS: Absolute Neutrophil Ct (ANC) 3.93 x10^3/uL (1.4-6.9); BASOPHIL % 0.4 % (0.0-0.4); Basophil (Absolute #) 0.03 x10^3/uL (0-0.4); Eosinophil % 2.3 % (0.00-5.0); Eosinophil (Absolute #) 0.16 x10^3/uL (0-0.5); Hematocrit 44.8 % (35-47); Hemoglobin 15.1 g/dL (12.0-16.0); IMMATURE GRAN # 0.02 x10^3u/L (0.00-0.03); IMMATURE GRAN % 0.3 % (0.00-0.4); Lymphocyte (Absolute #) 2.46 x10^3/uL (1.0-4.6); Lymphocytes % 34.6 % (24.0-44.0); Mean Cell Volume 87.2 fL (78-100); Mean Corpuscular Hemoglobin 29.4 pg (26-32); Mean Corpuscular Hgb Concent. 33.7 g/dL (32-36); Mean Platelet Volume 9.5 fL (7.5-11.0); Monocyte (Absolute #) 0.51 x10^3/uL (0.0-1.3); Monocytes % 7.2 % (0.0-12.0); Neutrophil % 55.2 % (36.0-66.0); Platelet Count 181 x10^3/uL (150-450); Red Blood Count 5.14 x10^6/uL (4.1-5.4); Red Cell Distribution Width 12.6 % (11.5-14.0); White Blood Count 7.1 x10^3/uL (4.0-10.5)
[2023-10-23 20:22] LABS: ALBUMIN 4.1 g/dL (3.5-5.0); ANION GAP 14.1 MEQ/L (5-15); BILIRUBIN,TOTAL 0.8 mg/dL (0.2-1.3); Calcium 10.4 mg/dL (8.4-10.2); Creatinine 1 0.59 mg/dL (0.52-1.04); EST GLOMERULAR FILTRATION RATE 95.7 ML/MIN; MAGNESIUM 1.9 mg/dL (1.6-2.3); Potassium 3.8 mmol/L (3.5-5.1); Total Protein 7.9 g/dL (6.3-8.2)
[2023-10-23 20:41] LABS: NT PRO BNPII 90.2 pg/mL (<300); TROPONIN < 0.012 ng/mL (0.000-0.033)
[2023-10-23 21:45] LABS: Appearance Clear (Clear); Bacteria None Seen /HPF (None Seen); Bilirubin Negative (Negative); Blood Negative (Negative); Epithelial Cells None Seen /HPF (None Seen); Glucose, Urine >=1000 mg/dL (Negative); Hyaline Casts NONE SEEN /LPF (0-2); Ketones 15 (Negative); Leukocyte Esterase Small (Negative); Nitrite Negative (Negative); Ph 5.5 (4.6-8.0); Protein,Urine Dip Negative (Negative); RBC 0-2 /HPF (0-5); Specific Gravity 1.025 (1.005-1.030); Urobilinogen 0.2 mg/dL (0.2)
[2023-10-23 21:46] LABS: ADD URINE CULTURE? YES (NO)
[2023-10-23 21:52] VITALS: RESP 17
[2023-10-23] MEDS ORDERED: KEFLEX 500 MG ONE (21:53)
[2023-10-23] MEDS: KEFLEX 500 MG PO ONE (21:54)
[2023-10-23 22:08] VITALS: BP 99/65; PULSE 83
--- NOTE | 2023-10-24 07:47 | XRAY ---
Indication: Lightheaded and dizziness. Multiple contiguous axial images obtained through the head without contrast. Comparison: March 10, 2020 Age-appropriate global atrophy. No acute intracranial hemorrhage, abnormal extra-axial fluid collection, or mass effect. Fourth ventricle is midline without hydrocephalus. Storey-white matter differentiation preserved. Bony calvarium intact. Visualized paranasal sinuses and mastoid air cells are clear. Impression: Negative CT head without contrast exam.
--- NOTE | 2023-11-09 13:39 | HOLTER ---
DATE OF PROCEDURE: 10/23/2023 PROCEDURE: Holter monitor report. REASON FOR EXAMINATION: Dizziness. DESCRIPTION OF PROCEDURE: The patient underwent Holter monitor for about 48 hours starting on 10/23/2023. The patient was in sinus rhythm predominantly with average rate of 79 beats/minute. The maximum rate was 185 beats/minute at 2:20 p.m. and the minimum rate was 60 beats/minute at 5:36 p.m. There were frequent premature ventricular ectopies noted. Rare ventricular couplets but no evidence of ventricular tachyarrhythmia. There were frequent premature atrial ectopies noted, rare atrial couplet and 8 long supraventricular tachycardia most likely representing atrial flutter/fibrillation with fast ventricular response with average rate of 182 beats/minute and the longest consisting of 37 beats. There was no evidence of any pauses or blocks noted. IMPRESSION: 1) NORMAL SINUS RHYTHM. 2) FREQUENT PVC'S AND RARE VENTRICULAR COUPLET. 3) FREQUENT PAC'S, RARE ATRIAL COUPLETS AND 8 RUNS OF PAROXYSMAL ATRIAL FIBRILLATION/FLUTTER WITH FAST VENTRICULAR RESPONSE MENTIONED ABOVE.
== END 2023-10-23 22:32 | disposition home or self-care (01) ==
LOC: ED 19:06
DX: N39.0 Urinary tract infection, site not specified (principal); E86.0 Dehydration; R42 Dizziness and giddiness; I10 Essential (primary) hypertension; E11.9 Type 2 diabetes mellitus without complications
CPT/HCPCS: 36000; 36415; 70450; 80053; 81001; 83735; 83880; 84484; 85025; 87086; 93005; 93041; 93225; 93226; 96374; 99284; J2405; A9270-GY